=== PATIENT | female | born 1990 | race Caucasian/White ===

== ENCOUNTER 2016-10-26 11:53 | Emergency (ER) | payer OTHER ==
[~2016-10-26] VITALS: Ht 162.6 cm; Wt 54.4 kg
--- NOTE | 2016-10-26 12:41 | ED PSYCHIATRIC COMPLAINT ---
History of Present Illness General Chief Complaint: Psychiatric Related Complaint Stated Complaint: PER MOTHER "DAUGHTER NEEDS KEVIN CHEEK" DENIES SI/HI Source: patient Exam Limitations: no limitations Vital Signs & Intake/Output Vital Signs & Intake/Output Vital Signs Date Time Temp Pulse Resp B/P Pulse O2 O2 Flow FiO2 Ox Delivery Rate 10/26 1504 108 16 128/74 100 Room Air 10/26 1305 Room Air 10/26 1157 98.1 146 18 145/89 99 Room Air Room Air Allergies Coded Allergies: No Known Allergies (10/26/16) Reconcile Medications Methylphenidate HCl (Methylphenidate ER) 18 MG TAB.ER.24 1 TAB PO QAM ADHD ( Reported) Triage Note: TRIAGE: 26 Y/O FEMALE PRESENTS WITH PARENTS. "MY PARENTS HAVE DECIDED THAT I AM ON THE VERGE OF KILLING MYSELF. BUT I WOULD LIKE TO STATE FOR THE RECORD THAT I AM NOT A DANGER TO MYSELF OR OTHERS. I WOULD LOVE TO TALK TO ANYONE NECESSARY TO GET EVERYTHING CLEAR." DENIES SUICIDALITY OR HOMICIDALITY. REPORTS OCCASIONAL ETOH USAGE. DENIES ILLICIT DRUG USE. COOPERATIVE IN TRIAGE. Triage Nurses Notes Reviewed? yes Onset: Gradual Duration: few months Timing: recent history Severity: mild Associated Symptoms: anxiety : No Patient currently breastfeeds: No HPI: 26 year old female presents to the ER for chief complaint of requesting psychiatric evaluation. She states that her mother brought her here for evaluation and that she wants to go through this so that she can clear everything up. According to the patient she recently moved back home in with her parents because she lost her job and couldn't afford to live on her own. Since that time she has had issues with her parents and states she feels like she is continuously being judged. She is one of 4 children and thinks that they were always compared to her older brother "sarah boy". She spends a lot of time on her own in her room. She is part of online chat groups and associated those people as her good friends. She denies SI/HI. No hallucinations. Denies any alcohol use, substance abuse. She reports some weight loss but states that she eats and doesn't "starve herself" like her mother thinks. She is working with a therapist that has diagnosed her with anxiety and ADHD. Currently on a medication regimen. Past History Travel History Traveled to [place] past 21 day No Medical History Any Pertinent Medical History? 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 No Review of Systems Review of Systems Constitutional: Reports: unexplained weight loss. Denies: chills, fever. EENTM: Reports: no symptoms. Respiratory: Denies: cough, short of breath. Cardiovascular: Denies: chest pain. GI: Denies: abdominal pain. Genitourinary: Reports: no symptoms. Musculoskeletal: Reports: no symptoms. Skin: Reports: no symptoms. Neurological/Psychological: Reports: anxiety, emotional problems. Hematologic/Endocrine: Denies: bruising, bleeding, polyuria, polydipsia. Immunologic/Allergic: Denies: splenectomy. All Other Systems: Reviewed and Negative Physical Exam Physical Exam General Appearance: alert, awake, comfortable, thin Head: atraumatic Eyes: Bilateral: PERRL, EOMI. Ears, Nose, Throat: normal pharynx, normal ENT inspection, hearing grossly normal Neck: normal inspection, supple Respiratory: normal breath sounds Cardiovascular: regular rate/rhythm Gastrointestinal: soft, non-tender Extremities: normal range of motion Neurological/Psychiatric: awake, alert, calm Appearance/Memory/Insight: disheveled Behavoir/Eye Contact/Speech: cooperative, normal speech, good eye contact Thoughts/Hallucinations: no apparent hallucination Skin: intact, normal color, warm/dry SAD PERSONS Done? patient not suicidal Progress Differential Diagnosis: anxiety, adhd, adjustment disorder, eating disorder, DEPRESSION Plan of Care: Orders Procedure Date/time Status Regular Diet 10/26 D Active ED CRISIS PSYCH CONSULT 10/26 1326 Active ETHANOL 10/26 1311 Complete COMPREHENSIVE METABOLIC PANEL 10/26 1311 Complete CBC WITHOUT DIFFERENTIAL 10/26 1311 Complete URINE DRUGS OF ABUSE 10/26 1243 Complete URINE 10/26 1243 Complete Laboratory Tests 10/26/16 1321: Anion Gap 15, Estimated GFR > 60, BUN/Creatinine Ratio 30.0 H, Glucose 133 H, Calcium 10.6 H, Total Bilirubin 0.7, AST 20, ALT 30, Alkaline Phosphatase 57, Total Protein 7.9, Albumin 4.8, Globulin 3.1, Albumin/Globulin Ratio 1.5, CBC w Diff MAN DIFF ORDERED, RBC 4.51, MCV 88.3, MCH 30.2, RDW 12.7, MPV 7.7, Gran % 87.2 H, Lymphocytes % 7.9 L, Monocytes % 4.5, Eosinophils % 0.4, Basophils % 0 L, Absolute Granulocytes 8.6 H, Absolute Lymphocytes 0.8 L, Absolute Monocytes 0.4, Absolute Eosinophils 0, Absolute Basophils 0, Platelet Estimate VERIFIED BY SMEAR, Normocytic RBCs VERIFIED, Normochromic RBCs VERIFIED, PUBS MCHC 34.2, Serum Alcohol < 10.0 10/26/16 1300: Urine Opiates Screen < 100.00, Methadone Screen < 40, Barbiturate Screen < 60, Ur Phencyclidine Scrn < 6.00, Amphetamines Screen < 100, U Benzodiazepines Scrn < 85, Urine Cocaine Screen < 50, Urine Cannabis Screen < 5.00, Urine Test NEGATIVE LABS, UTOX, . CRISIS CONSULT ORDERED. 19:00 PATIENT CLEARED BY CRISIS FOR DISCHARGE HOME. (FAM JONES,NANDINI) Departure Departure Time of Disposition: 1908 Disposition: HOME OR SELF CARE Condition: Stable Clinical Impression Primary Impression: Anxiety Secondary Impressions: ADHD (attention deficit hyperactivity disorder) Referrals: PERLA JONES,JESUS Fields (PCP/Family) Additional Instructions: FOLLOW UP WITH PARAS RODRIGUEZ ON FRIDAY INSTRUCTED BY OUR CRISIS DEPARTMENT. RETURN IF WORSE. Departure Forms: Customer Survey General Discharge Information
[2016-10-26 13:48] LABS: ABSOLUTE BASOPHIL COUNT 0 /CUMM (0.0-0.2); ABSOLUTE EOSINOPHIL COUNT 0 /CUMM (0.0-0.7); ABSOLUTE GRANULOCYTE CT 8.6 /CUMM (1.4-6.5); ABSOLUTE LYMPH COUNT 0.8 /CUMM (1.2-3.4); ABSOLUTE MONOCYTE COUNT 0.4 /CUMM (0.10-0.60); BASOPHIL % 0 % (0.0-2.0); EOSINOPHIL % 0.4 % (0-5); HEMATOCRIT 39.8 % (37-47); MEAN CORPUSCULAR HGB 30.2 PG (27.0-31.0); MEAN CORPUSCULAR HGB CONC 34.2 G/DL (33.0-37.0); MEAN CORPUSCULAR VOLUME 88.3 FL (81.0-99.0); MEAN PLATELET VOLUME 7.7 FL (7.4-10.4); PLATELET COUNT 272 /CUMM (130-400); RBC DISTRIBUTION WIDTH 12.7 % (11.5-14.5); RED BLOOD CELL CT 4.51 /CUMM (4.20-5.40); WHITE BLOOD CELL COUNT 9.9 /CUMM (4.8-10.8)
[2016-10-26 13:53] LABS: GRANULOCYTE % 87.2 % (42.2-75.2)
[2016-10-26] MEDS ORDERED: METHYLPHENIDATE PO (14:31)
--- NOTE | 2016-10-26 18:12 | ED PSYCH CRISIS CONSULTATION ---
Crisis Consult Basic Assessment Date of Consult: 10/26/16 Responsible Person/Accompanied By: brought in by parents Insurance Authorization: Insurance #1: Insurance name: [employer] Phone number: Policy number: [id number] Group number: [id number] Authorization number: ED Provider: Patient's ED Provider: FAM JONES,NANDINI Primary Care Physician: Patient's PCP: JESUS DUNCAN MD PCP's Current Psychiatrist: clarissa GO, doesnt know name Chief Complaint: Psychiatric Related Complaint Patient's Quote: "I've beens tyaing with my parents for the past 5 months or so " Present Illness: Pt is a 26 year old female, who recently moved back to her parents home, after living independently in [place] for 4 years and 1 year in [place]. Pt reports she is having trouble feeling comfortable at home and has since chosen to "retreat", according to her parents the pt does not leave her bedroom, and it is not clear as to whether or not she is eating, parents also state she is not showering. Pt states she has been more isolative and compulsive lately 'i get consumed with reading, and then I dont stop, and have no idea what else is going on". Denies si/ho history no intent, denies hi/ah/vh. Pt states she was recently diagnosed with ADHD, pt is articulate, anxious, but communicates effectively during evaluation. She understands why her parents wanted her seen here today. Pt was in outpatient therapy until a month ago. Other than that she has no psychiatric history. Pt states she was working on creating healthy boundaries. Pt denies drug use, tox screen is negative. Pt wants to apply to colleges/scholarships and get a job. Pt is not sure what is preventing this from happening, and gets defensive when her parents what to know. Her sister is returning from a road trip in a few days, and she is looking forward to that. Patient's Address: [address] [place] [address] T Other Phone Number: Who Do You Live With? Family Family/Informants Interviewed: spoke to her parents, they do not think she is suicidal, just concerned with recent isolative behaviors, think IOP is a good idea. Allergies - Coded Allergies: No Known Allergies (10/26/16) Current Medications - Scheduled Medications Methylphenidate HCl (Methylphenidate ER) 18 MG TAB.ER.24 1 TAB PO QAM ADHD #30 (Reported) Entered as Reported by BRITTNEY ELIZABETH on 10/26/16 1431 Laboratory Results: Laboratory Tests 10/26/16 1321: Anion Gap 15, Estimated GFR > 60, BUN/Creatinine Ratio 30.0 H, Glucose 133 H, Calcium 10.6 H, Total Bilirubin 0.7, AST 20, ALT 30, Alkaline Phosphatase 57, Total Protein 7.9, Albumin 4.8, Globulin 3.1, Albumin/Globulin Ratio 1.5, CBC w Diff MAN DIFF ORDERED, RBC 4.51, MCV 88.3, MCH 30.2, RDW 12.7, MPV 7.7, Gran % 87.2 H, Lymphocytes % 7.9 L, Monocytes % 4.5, Eosinophils % 0.4, Basophils % 0 L, Absolute Granulocytes 8.6 H, Absolute Lymphocytes 0.8 L, Absolute Monocytes 0.4, Absolute Eosinophils 0, Absolute Basophils 0, Platelet Estimate VERIFIED BY SMEAR, Normocytic RBCs VERIFIED, Normochromic RBCs VERIFIED, PUBS MCHC 34.2, Serum Alcohol < 10.0 10/26/16 1300: Urine Opiates Screen < 100.00, Methadone Screen < 40, Barbiturate Screen < 60, Ur Phencyclidine Scrn < 6.00, Amphetamines Screen < 100, U Benzodiazepines Scrn < 85, Urine Cocaine Screen < 50, Urine Cannabis Screen < 5.00, Urine Test NEGATIVE Past History Past Medical History Neurological: NONE EENT: NONE Cardiovascular: NONE Respiratory: NONE Gastrointestinal: NONE Hepatic: NONE Renal: NONE Musculoskeletal: NONE Psychiatric: ADHD Endocrine: NONE Blood Disorders: NONE Cancer(s): NONE 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 Psychosocial History Strengths/Capabilities: has lived independently, applying to schools, supportive family Psychiatric Treatment History Psych Treatment Psychiatric Treatment Yes Inpatient Treatment No Outpatient Treatment Yes Location of Treatment [facility] Reason for Treatment mood/family issues/focus Dates of Treatment 2017 Response to Treatment unknown Diagnosis by History: "ADHD" Substance Use/Abuse History Drug Use/Abuse Substances Used/Abused No Substance Abuse Treatment Substance Abuse Treatment Past Substance Abuse [place] No Current Mental Status Mental Status Orientation: Person, Place, Situation Affect: Anxious, Appropriate Speech: WNL Neuro-vegetative: Appetite Decreased, Concentration Poor, Loss of Interest, Sleep Disturbance Appearance Appearance- Dress/Hygiene: slightly unkempt/looks stated age, underweight Behaviors Thought Process: WNL Thought Content: WNL Memory: WNL Insight: Fair SI/HI Risk Assessment Past Suicidal Ideation/Attempts No Current Suicidal Ideation/Att No Past Homicidal Ideation/Att: No Current Homicidal Ideation/Attempts No Degree of Intent: None Risk Factors: high anxiety/distress, isolate/no social support, family stress Lethality Ratin (mild) PTSD Checklist PTSD Done? patient declined ED Management Sitter: Yes Restraints: No DSM5/PS Stressors/Medical Prob Diagnosis' (DSM 5, Stressors, Medical): Anxiety D/O F41.1 ADHD by hx Current GAF: 37 Departure Disposition Psych Medical Clearance Date: 10/26/16 Medically Cleared at: 0432 Time Started: 0432 Time Ended: 0532 Psychiatrist Consulted: AZALIA Date Disposition Established: 10/26/16 Time Disposition Established: 531 Plan for Disposition - Modality: [facility] Facility: [facility] Follow-up Appt Date: 10/30/16 Follow-Up Appt Time: 1015 Contact: [facility] Telephone: [phone] Rationale for Disposition: Consulted with Dr. khalil, pt to be referred to [facility], and start family therapy as needed to resolve some concerns/conflicts at home. Referrals PERLA JONES,JESUS Fields (PCP/Family)
[2016-10-26 18:50] VITALS: BP 134/70
== END 2016-10-26 19:18 ==
LOC: ERH 11:53
PROVIDERS: Emergency Medicine
DX: F41.9 Anxiety disorder, unspecified (principal); F90.1 Attention-deficit hyperactivity disorder, predominantly hyperactive type
CPT/HCPCS: 80307; 81025; G0463; G0480